=== PATIENT | male | born 1985 | race Caucasian/White ===

== ENCOUNTER 2022-12-06 10:15 | Emergency (ER) | payer BC ==
[2022-12-06] MEDS ORDERED: Famotidine 20 MG Tab PO STA (10:42)
[2022-12-06] MEDS ORDERED: diphenhydrAMINE 50 MG Cap PO STA (10:42)
[2022-12-06] MEDS ORDERED: predniSONE 20 MG Tab PO STA (10:42)
[2022-12-06 11:13] LABS: CORONAVIRUS COVID-19 NAA NEGATIVE (NEGATIVE); INFLUENZA A NAA NEGATIVE (NEGATIVE); INFLUENZA B NAA NEGATIVE (NEGATIVE); RESPIRATORY SYNCYTIAL VIR NAA NEGATIVE (NEGATIVE)
== END 2022-12-06 12:30 | disposition home or self-care (01) ==
LOC: MW.ED 10:15
DX: L50.9 Urticaria, unspecified (principal); J18.9 Pneumonia, unspecified organism; I10 Essential (primary) hypertension; E78.00 Pure hypercholesterolemia, unspecified; Z86.16 Personal history of COVID-19; Z79.899 Other long term (current) drug therapy; Z20.822 Contact with and (suspected) exposure to COVID-19
CPT/HCPCS: 0241U; 71046; 87651; 99283; A9270